=== PATIENT | female | born 1985 | race Caucasian/White ===

== ENCOUNTER 2018-10-26 08:00 | Inpatient (IN) ==
[2018-10-26] MEDS ORDERED: Ringers Solution, Lactated 1,000 ML ONE ×2 (08:11→09:13)
[2018-10-26] MEDS ORDERED: Metoclopramide 10 MG/2 ML VIAL IVP PRN (08:59)
[2018-10-26] MEDS ORDERED: *HR* Nalbuphine 10 MG/ML AMPUL IVP PRN (08:59)
[2018-10-26] MEDS ORDERED: miSOPROStol 25 MCG TABLET VG PRN (08:59)
[2018-10-26] MEDS ORDERED: Ondansetron 4 MG/2 ML VIAL IVP PRN (08:59)
[2018-10-26] MEDS ORDERED: Naloxone 0.4 MG/ML INJ IVP PRN (08:59)
[2018-10-26] MEDS ORDERED: Famotidine 20 MG/2 ML VIAL IVP PRN (08:59)
[2018-10-26] MEDS ORDERED: Ringers Solution, Lactated 1,000 ML IVC SCH (09:00)
[2018-10-26] MEDS ORDERED: Oxytocin 20 units/ LR 1000 mL 20 UNIT/1,000 ML BAG IVC SCH ×2 (09:00→19:53)
[2018-10-26] MEDS ORDERED: Oxytocin 20 units/ LR 1000 mL 20 UNIT/1,000 ML BAG IVC ONE (09:13)
--- NOTE | 2018-10-26 10:31 | OB/GYN History & Physical ---
Date of Encounter: 10/26/18 Time of Encounter: 10:30 Assessment and Plan (1) Supervision of normal IUP (intrauterine ) in multigravida Current visit: Yes Status: Acute O pos, GBS neg (10/05), RI, HIV NR, RPR NR, Varicela NI. F/u Hep B drawn on L&D. (2) with 39 completed weeks gestation Current visit: Yes Status: Acute Admit to L&D for elective IOL. Epidural PRN for pain control. History of Present Illness Chief complaint: eIOL HPI: Ms. Pennington is a 33yo @ 39.1wga by LMP (01/25/18) presents for eIOL. +FM. Denies VB, abnml vaginal discharge, dysuria, painful ctxs, dysuria or other complications w/ this . +BH ctxs x 2-[address] Torres for her routine PNC. Last appt 10/20/18. Past Med Surg Social Fam HX - Past Medical History Source: patient Medical history: no medical history Psychiatric history: no psych history - Past Surgical History Surgical History: other Additional surgical history: Laparscopy @ 20yo for endometriosis dx & tx - Social History Smoking Status: Never smoker Smokeless Tobacco Status: No Alcohol use: none Drug use: none - Family History Father Age: 50 Living Status: Still Living Hx Family Cardiac Disorders: No Hx Family Respiratory Disorders: No Hx Family Cancer: Yes (leukemia) Hx Family GI Disorders: No Hx Family Genitourinary Disorders: No Hx Family Endocrine Disorder: No Hx Family Musculoskeletal Disorders: No Hx Family Neuromuscular Disorders: No Hx Family Neurologic Disorders: No Hx Family HEENT Disorders: No Hx Family Autoimmune Disorders: No Hx Family Reproductive Disorders: No Hx Family Psychosocial Disorders: No Hx Family Medical Disorders: No Obstetrical History - Pregnancies : 4 Para: 3 Term: 3 (2009- term, female, 8#13oz, , no comps; 2012- term, female, 9#5oz, S VD, no comps; 2016-term, male, 9#2oz, , no comps.) Livin Medications and Allergies Zantac 75 mg PO BID 10/26/18 [History] Allergy/AdvReac Type Severity Reaction Status Date / Time shellfish derived Allergy Hives Verified 10/26/18 10:09 Review of System OB All systems PM: reviewed and no additional remarkable complaints except as stated (per HPI) Exam - Vital Signs Vital signs: Initial Vital Signs Temp Pulse Resp BP Pulse Ox 97.8 F 90 14 121/81 99 10/26/18 09:22 10/26/18 09:22 10/26/18 09:22 10/26/18 09:22 10/26/18 09:22 - Constitutional Constitutional: well developed, well nourished, no acute distress - HEENT HEENT: EOMI, Normocephaly - Neck Neck exam: full ROM - Abdomen Abdomen: Present: gravid - Cervix Dilation: 3 Effacement: 80 Station: -2 (per RN check) Results Result Diagrams: 10/26/18 09:22 All other labs normal. - VTE Reasons for not Prescribing Prophylaxis: Treatment not Indicated - Low risk for VTE
--- NOTE | 2018-10-26 10:35 | Anesthesia Evaluation PreOp ---
Date of Encounter: 10/26/18 Time of Encounter: 10:33 - Past History Planned Operation: shyann Cardiac History: Denies any Significant Hx Pulmonary History: Denies Any Significant HX RECRUITMENT DIRECTOR History: Denies Any Significant HX Other Medical History: GERD Anesthesia History: No Prior Anesthetic Complications, Past Anesthesia (laparoscopy, clex3) : Yes Test: Positive Alcohol Use: none Drug use: none Medications and Allergies Zantac 75 mg PO BID 10/26/18 [History] Allergy/AdvReac Type Severity Reaction Status Date / Time shellfish derived Allergy Hives Verified 10/26/18 10:09 - Meds/Allergy Pre-op Review Medications Reviewed: Yes Allergies Reviewed: Yes Beta Blockers on Current Med List: No Anesthesia Exam 122/78 88 fht 133 Height: 5,3" Weight: 175 NPO (# of Hours): 2 Pain Scale: 2 Pain Scale Used: Numeric (1 - 10) - HEENT Pupil (Motor): Pupils equal Mallampati: II Teeth: Normal Oral Opening: Greater than 3 - RECRUITMENT DIRECTOR LOC: Oriented RECRUITMENT DIRECTOR Motor: Normal RUE, Normal LUE, Normal RLE, Normal LLE, Normal Face RECRUITMENT DIRECTOR Sensory: Normal: RUE, LUE, RLE, LLE, Face - Cardiac Rhythm: Regular Murmur: None - Pulmonary Breath Sounds: bilateral Clear Respiratory Effort: Symmetrical Anesthesia Assess/Plan ASA Score: 2 Level of consciousness: Cooperative Anesthetic Plan: Epidural (risks discussed questions answered, consented) Autologous Blood: No Monitoring Plan: Standard Monitors Recovery Plan: Other
[2018-10-26] MEDS ORDERED: *HR* FentaNYL (PF) 100 MCG/2 ML VIAL EP ONE (10:36)
[2018-10-26] MEDS ORDERED: *HR* Ropivacaine/PF 0.2% 20 ML VIAL EP ONE (10:36)
[2018-10-26] MEDS ORDERED: Epidural Premix (fent/bupiv) 110 ML EP SCH (10:45)
[2018-10-26 11:18] LABS: Basophils % 0.3 %; Eosinophils # 0.1 K/mcL (0.0-0.6); Eosinophils % 0.9 %; Hematocrit 34.9 % (35.3-44.9); Hemoglobin 10.4 g/dL (11.5-15.4); Immature Granulocytes % 0.6 % (0-4); Lymphocytes # 2.4 K/mcL (0.6-4.6); Lymphocytes % 20.5 %; Mean Corpuscular HGB Conc 29.8 g/dL (31.6-35.5); Mean Corpuscular Hemoglobin 22.4 pg (28.0-33.3); Mean Corpuscular Volume 75.1 fL (83.0-100.0); Mean Platelet Volume 12.1 fL (9.4-12.4); Monocytes # 0.8 K/mcL (0.0-1.3); Monocytes % 6.8 %; Neutrophils # 8.2 K/mcL (1.6-8.9); Nucleated Red Blood Cells 0.2 /100 WBC (0); Platelet Count 190 K/mcL (140-400); Red Blood Count 4.65 M/mcL (3.82-4.97); Red Cell Distribution Width 15.6 % (11.5-14.5); Segmented Neutrophils % 70.9 %
[2018-10-26 12:43] LABS: Amphetamine Screen,Urine Negative ng/mL (Cutoff=1000); Barbiturate Screen,Urine Negative ng/mL (Cutoff=200); Benzodiazepines Screen,Urine Negative ng/mL (Cutoff=200); Cannabinoid Screen,Urine Negative ng/mL (Cutoff = 50); Cocaine Screen,Urine Negative ng/mL (Cutoff= 300); Opiate Screen,Urine Negative ng/mL (Cutoff=300); Phencyclidine Screen,Urine Negative ng/mL (Cutoff=25)
[2018-10-26] MEDS ORDERED: *HR* FentaNYL (PF) 100 MCG/2 ML VIAL ONE (13:34)
[2018-10-26] MEDS ORDERED: Lidocaine -MPF 2% 5 ML VIAL ONE (13:35)
--- NOTE | 2018-10-26 15:00 | OB/GYN Progress Note ---
Date of Encounter: 10/26/18 Time of Encounter: 14:43 - Assessment and Plan (1) Supervision of normal IUP (intrauterine ) in multigravida Current Visit: Yes Status: Acute O pos, GBS neg (10/05), RI, HIV NR, RPR NR, Varicela NI. F/u Hep B drawn on L&D. (2) with 39 completed weeks gestation Current Visit: Yes Status: Acute Cont to monitor. Pain management PRN. Initiate oxytocin if no significant cervical change w/ ctxs. Subjective - Subjective Principal diagnosis: IUP @ 39.1wga Interval history: AROM performed without difficulty. Pt tolerated procedure well. Moderate amount of clear fluid obtained. Objective - Vital Signs Vital Signs: Vital Signs Temp Pulse Resp BP Pulse Ox 10/26/18 09:22 97.8 F 90 14 121/81 99 Intake and Output 10/25/18 10/26/18 10/26/18 23:59 07:59 15:59 Other: Weight 84.6 kg Patient Weight 10/26/18 23:59 Weight 84.6 kg - Exam FHR: category 1 FHR comments: FHT: 140/moderate variability/+accels/no decels, Cat 1 tracing Cervical dilation: 3 Cervix effacement: 80 station: -2 - Labs Labs: Abnormal lab results WBC 11.5 K/mcL (4.3-11.1) H 10/26/18 09:22 Hgb 10.4 g/dL (11.5-15.4) L 10/26/18 09:22 Hct 34.9 % (35.3-44.9) L 10/26/18 09:22 MCV 75.1 fL (83.0-100.0) L 10/26/18 09:22 MCH 22.4 pg (28.0-33.3) L 10/26/18 09:22 MCHC 29.8 g/dL (31.6-35.5) L 10/26/18 09:22 RDW 15.6 % (11.5-14.5) H 10/26/18 09:22 Nucleated RBCs/100 WBC 0.2 /100 WBC (0) H 10/26/18 09:22
--- NOTE | 2018-10-26 15:57 | Anesthesia Procedures ---
Addendum entered and electronically signed by Louis Dimas CRNA 10/26/18 18:39: Infant Delivery Date: 10/26/18 Delivery Time: 16:44 Original Note: Date of Encounter: 10/26/18 Time of Encounter: 15:55 Procedures: Anesthesia - Epidural/Spinal Patient ID/Chart reviewed: Yes Patient examined: Yes OB Eval: Gestational age: 39 OB Eval: : 4 OB Eval: Hx Para: 3 OB Eval: Dilated at (cm): 6 OB Eval: Contractions: Non-stressed pattern Consent Obtained: Yes Supplemental Oxygen: None/Room Air Site Prep: Aseptic Technique, Sterile prep and drape, 0.5% Chlorhexidine/Alcohol Patient position: upright Local Anesthetic: Lidocaine 1% Amount of Local Anesthetic used: 5 Touhy Needle Gauge: 18 Touhy Needle Depth (cm): 7 Catheter Depth at Skin (cm): 20 Test Dose (1.5% Lido + Epi): Volume given (mls): 3 Test Dose Result: Negative Loading Dose: Fentanyl (mcg): 100 Loading Dose: Other: rop 0.2% 10cc Loading Dose Administered: Thru Touhy Needle Infusion Med: 0.125% Bupivacaine w/ 2 mcg/ml Fentanyl Infusion Rate (mls/hr): 15 (pcea 5cc q30") Catheter Secured in Place: Tegaderm Interspace Used: L2-L3 Loss of Resistance (BRITNEY): Yes Blood: No CSF: No Paresthesia: No Procedure: aseptic, swetha well ,vss,effective Vitals + FHT's: 122/68 100 16 fht 133
--- NOTE | 2018-10-26 17:59 | OB/GYN Procedure Note ---
Delivery - Delivery Date: 10/26/18 Provider: Belen Torres Intrapartum events: none Delivery induction: misoprostol Delivery augmentation: rupture of membranes Delivery monitor: external FHT, internal uterine Anesthesia: epidural Quantitated Blood Loss: 100 - Infant (s) A Infant Delivery Date: 10/26/18 Infant Delivery Time: 16:44 Presentation: vertex Position: BONNIE Route of delivery: Gender: Female Viability: Viable Pounds: 8 Ounces: 11 Weight Gram: 3.935 kg at 1 minute: 9 at 5 mins: 9 Shoulder Dystocia: not encountered Specimens collected: cord blood Placenta: spontaneous Cord: 3 umbilical vessels - Repair Laceration Description: None - Complications Delivery complications: none Delivery comments: Pt progressed to complete with epidural anesthesia. She pushed to deliver a live female with APGARS of 9 & 9 weighing 8#11oz @ 1644. The head delivered in BONNIE position. The left anterior shoulder delivered without difficulty, followed by the rest of the body. The was safely placed on the maternal abdomen. The cord was clamped x 2 after pulsations ceased & cut by the father. Cord blood was collected & sent for routine testing. The placenta was delivered sponta neously, intact, with 3 vessel cord. The perineum, vagina & cervix inspected, a hemostatic right periurethral laceration noted. EBL: 100cc. Drs. Torres & Marek present for delivery. - Disposition Mom disposition: stable in LDR disposition: stable in LDR - Comments Comments: Personally actively attended the delivery along with supervising Dr. Jara and agree with above
[2018-10-26] MEDS ORDERED: Acetaminophen 325 MG TABLET PO PRN (19:53)
[2018-10-27] MEDS: Ibuprofen 600 MG TABLET PO SCH ×2 (01:44→08:16)
[2018-10-27 08:21] VITALS: BP 124/87
--- NOTE | 2018-10-27 08:35 | Discharge Summary ---
Date of Encounter: 10/27/18 Time of Encounter: 08:32 - Discharge Diagnosis (1) Vaginal delivery Priority: Primary Status: Acute Comments: Pt meeting all milestones. She desires discharge home today. She declines contraception at this time but will discuss with Dr. Farmer at [facility]. (2) Breast feeding status of mother Priority: Secondary Status: Acute Comments: well established. - Discharge Medications Prescriptions: Ibuprofen [Motrin] 600 mg PO Q6HR #30 tablet Docusate [Colace] 100 mg PO BID #30 capsule Home Medications: Zantac 75 mg PO BID 10/26/18 [History] Docusate [Colace] 100 mg PO BID #30 capsule 10/27/18 [Rx] Ibuprofen [Motrin] 600 mg PO Q6HR #30 tablet 10/27/18 [Rx] Vit/FA 1 each PO DAILY tablet 10/27/18 [Rx] Allergies/Adverse Reactions: Allergy/AdvReac Type Severity Reaction Status Date / Time shellfish derived Allergy Hives Verified 10/26/18 10:09 Data Procedures and tests throughout hospitalization: Laboratory Tests 10/26/18 10/26/18 10/26/18 09:22 09:22 10:24 WBC 11.5 H RBC 4.65 Hgb 10.4 L Hct 34.9 L MCV 75.1 L MCH 22.4 L MCHC 29.8 L RDW 15.6 H Plt Count 190 MPV 12.1 Immature Gran % 0.6 Seg Neutrophils % 70.9 Lymphocytes % 20.5 Monocytes % 6.8 Eosinophils % 0.9 Basophils % 0.3 Neutrophils # 8.2 Lymphocytes # 2.4 Monocytes # 0.8 Eosinophils # 0.1 Basophils # 0.0 Nucleated RBCs/100 WBC 0.2 H Urine Opiates Screen Negative Ur Barbiturates Screen Negative Ur Phencyclidine Scrn Negative Ur Amphetamines Screen Negative U Benzodiazepines Scrn Negative Urine Cocaine Screen Negative U Marijuana (THC) Screen Negative Ur Drug Screen Interp See Below Hep Bs Antigen Nonreactive Labs on day of discharge: Labs from last 24 hours 10/26/18 10/26/18 10/26/18 10:24 09:22 09:22 WBC 11.5 H RBC 4.65 Hgb 10.4 L Hct 34.9 L MCV 75.1 L MCH 22.4 L MCHC 29.8 L RDW 15.6 H Plt Count 190 MPV 12.1 Immature Gran % 0.6 Seg Neutrophils % 70.9 Lymphocytes % 20.5 Monocytes % 6.8 Eosinophils % 0.9 Basophils % 0.3 Neutrophils # 8.2 Lymphocytes # 2.4 Monocytes # 0.8 Eosinophils # 0.1 Basophils # 0.0 Nucleated RBCs/100 WBC 0.2 H Urine Opiates Screen Negative Ur Barbiturates Screen Negative Ur Phencyclidine Scrn Negative Ur Amphetamines Screen Negative U Benzodiazepines Scrn Negative Urine Cocaine Screen Negative U Marijuana (THC) Screen Negative Ur Drug Screen Interp See Below Hep Bs Antigen Nonreactive Date of admission: 10/26/18 08:03 Primary care physician: PCP NONE Consults: 10/26/18 19:53 Consult to [employer] Consultant [CONS] Routine Comment: Vaginal delivery, consult needed Discharging clinician: Renate Andrade Anticipated date of discharge: 10/27/18 - Patient Status Disposition: Home, Self-Care Condition: Good Functional capacity at discharge: independent ambulation Overall status at discharge: patient is progressing back to baseline - Discharge Instructions Follow Up With: NONE,PCP [Primary Care Provider] - Epi Farmer MD [Partnered Physician] - - Diet and Activity Activity: increase activity as tolerated Diet: regular diet Hospital Course Reason for admission: induction of labor Delivery: Episiotomy: none Laceration: none Other procedures: none complications: none Discharge diagnosis: IUP at term delivered baby: female Hospital course: - Delivery Date: 10/26/18 Provider: Belen Torres Intrapartum events: none Delivery induction: misoprostol Delivery augmentation: rupture of membranes Delivery monitor: external FHT, internal uterine Anesthesia: epidural Quantitated Blood Loss: 100 - (s) Infant A Infant Delivery Date: 10/26/18 Delivery Time: 16:44 Presentation: vertex Position: BONNIE Route of delivery: Gender: Female Viability: Viable Pounds: 8 Ounces: 11 Weight Gram: 3.935 kg at 1 minute: 9 at 5 mins: 9 Shoulder Dystocia: not encountered Specimens collected: cord blood Placenta: spontaneous Cord: 3 umbilical vessels - Repair Laceration Description: None - Complications Delivery complications: none - Disposition Mom disposition: home PPD#1 [employer] disposition: home with mother, Time Attestation: Total time spent providing and/or coordinating discharge services: Exam - Constitutional Vitals: Temp Pulse Resp BP Pulse Ox 97.9 F 86 16 124/87 96 10/27/18 08:20 10/27/18 08:20 10/27/18 08:20 10/27/18 08:20 10/27/18 08:20 General appearance IM: A&O X 3 - Respiratory Respiratory exam: Present: CTAB - Cardiovascular Cardiovascular exam IM: Present: RRR, +S1, +S2 - GI/Abdominal GI/Abdominal exam IM: soft, no peritoneal signs - External exam: normal external exam Uterine Tone: Firm Uterus Position: 1 Finger Below Umbilicus - Extremities Exam Extremities exam IM: Present: normal inspection - Neurological Exam Neurological exam: normal gait, oriented X3 - Psychiatric Additional comments: reports good mood, flat affect
[2018-10-27] MEDS ORDERED: Famotidine 20 MG TABLET PO SCH (09:00)
[2018-10-27] MEDS ORDERED: Prenatal Vit/FA 1 EACH TABLET PO SCH (09:00)
== END 2018-10-27 13:39 | disposition home or self-care (01) | DRG 807 ==
LOC: 1NENULAB 08:03 → 1NENUOBS 20:12
PROVIDERS: ADMIT Advanced Practice Midwife; ATTEND Advanced Practice Midwife